=== PATIENT | female | born 1950 | race African-American/Black ===

== ENCOUNTER 2018-07-01 20:05 | Emergency (ER) | payer MEDICARE ==
[~2018-07-01] VITALS: Ht 154.9 cm; Wt 88.5 kg
[2018-07-02 02:01] LABS: BASOPHILS % 0.6 % (0.0-2.0); HEMATOCRIT. 41.4 % (36.0-48.0); MEAN CORPUSCULAR HEMOGLOBIN 30.7 pg (28.0-32.0); MEAN CORPUSCULAR VOLUME 91.1 fL (81.0-99.0); MEAN PLATELET VOLUME 11.1 fl (7.4-10.4); MONOCYTES % 8.8 % (2.0-8.0); NEUTROPHILS % 63.6 % (40.0-76.0); PLATELET 205 x1000/uL (130-400); RED BLOOD CELL COUNT 4.55 mill/uL (4.2-5.4)
[2018-07-02 02:03] LABS: CHLORIDE 104 mEq/L (98-107)
[2018-07-02 03:17] LABS: CLARITY URINE CLEAR (CLEAR); COLOR URINE YELLOW (YELLOW); KETONES URINE NEGATIVE (NEGATIVE); LEUKOCYTE ESTERASE URINE TRACE (NEGATIVE); NITRITE URINE NEGATIVE (NEGATIVE); OCCULT BLOOD URINE TRACE (NEGATIVE); PH URINE 5.5 (4.5-8.0); PROTEIN URINE NEGATIVE (NEGATIVE); SPECIFIC GRAVITY URINE 1.019 (1.005-1.030); UROBILINOGEN URINE 0.2 E.U./dL (0.2-1.0)
[2018-07-02] MEDS ORDERED: MORPHINE SULFATE 10 MG/ML CPJ IM ONE (04:30)
[2018-07-02 05:13] VITALS: BP 144/92
== END 2018-07-02 05:17 | disposition home or self-care (01) ==
LOC: ER 20:05 → CANBEDREQ 07-02 06:39
DX: K80.00 Calculus of gallbladder with acute cholecystitis without obstruction (principal); M51.34 Other intervertebral disc degeneration, thoracic region; E11.9 Type 2 diabetes mellitus without complications; E78.00 Pure hypercholesterolemia, unspecified
CPT/HCPCS: 36415; 72070; 76705; 80053; 81003; 83690; 85025; 85610; 96372; 99284; J2270